=== PATIENT | male | born 1960 | race Caucasian/White ===

== ENCOUNTER 2021-07-16 15:57 | Emergency (ER) | payer SELFPAY ==
[~2021-07-16] VITALS: Ht 170.2 cm; Wt 79.5 kg
--- NOTE | 2021-07-16 15:58 | NUR ---
DEBRA DAVIS VIA GURNEY TO BED 03.
[2021-07-16 16:01] VITALS: BP 102/90
[2021-07-16] MEDS ORDERED: THIAMINE 200 MG/2 ML VIAL IV ONE (16:05)
[2021-07-16] MEDS ORDERED: NACL 0.9% 1,000 ML IV ONE (16:05)
[2021-07-16] MEDS ORDERED: FOLIC ACID 1 MG TAB PO ONE (16:05)
[2021-07-16 16:25] VITALS: BP 102/90
--- NOTE | 2021-07-16 16:45 | NUR ---
PT ELOPED , NO NURSING CARE RENDERED
--- NOTE | 2021-07-16 16:46 | NUR ---
Chart checked and completed. The patient's care was reviewed and supervised by Ashley Engle RN.
== END 2021-07-16 16:45 | disposition left against medical advice (07) ==
LOC: MED 15:57
DX: F10.129 Alcohol abuse with intoxication, unspecified (principal); I10 Essential (primary) hypertension
CPT/HCPCS: 99283

== ENCOUNTER 2021-07-16 17:57 | Emergency (ER) | payer SELFPAY ==
[~2021-07-16] VITALS: Ht 170.2 cm; Wt 76.0 kg
--- NOTE | 2021-07-16 17:57 | NUR ---
DEBRA DAVIS VIA GURNEY TO BED 05.
[2021-07-16] MEDS ORDERED: THIAMINE 200 MG/2 ML VIAL IV ONE (18:05)
[2021-07-16] MEDS ORDERED: FOLIC ACID 1 MG TAB PO ONE (18:05)
[2021-07-16] MEDS ORDERED: NACL 0.9% 1,000 ML IV ONE (18:05)
[2021-07-16] MEDS ORDERED: MAG SULF 2000 MG/WATER PREMIX 50 ML IV STA (18:16)
[2021-07-16 18:18] VITALS: BP 109/66
[2021-07-16] MEDS ORDERED: THIAMINE 200 MG/2 ML VIAL IM ONE (18:20)
[2021-07-16] MEDS ORDERED: FOLIC ACID 5 MG, MULTIVITAMIN-12 10 ML in NACL 0.9% 1,000 ML IV ONE (18:20)
--- NOTE | 2021-07-16 18:42 | NUR ---
PT IN BED WITH SIDE RAILS UP X2. PT ON MONITOR
[2021-07-16] MEDS ORDERED: THIAMINE 200 MG/2 ML VIAL ONE (19:29)
[2021-07-16] MEDS ORDERED: MAG SULF 2000 MG/WATER PREMIX 50 ML IV ONE (19:30)
--- NOTE | 2021-07-16 20:00 | NUR ---
patient sitting in bed. bed low and locked. all needs met
--- NOTE | 2021-07-17 01:03 | NUR ---
PATIENT EATING FOOD AT THIS TIME. BED LOW AND LOCKED. NATALIIA SIDE RAILS UP FOR SAFETY. ALL NEEDS MET AT THIS TIME.
--- NOTE | 2021-07-17 03:00 | NUR ---
PATIENT SLEEPING. BED LOW AND LOCKED. NATALIIA SIDE RAILS UP FOR SAFETY.
--- NOTE | 2021-07-17 04:00 | NUR ---
patient ambulated to the and back to bed
--- NOTE | 2021-07-17 05:01 | NUR ---
PATIENT RESTING IN BED. BED LOW AND LOCKED. NATALIIA SIDE RAILS UP FOR SAFETY.
[2021-07-17 05:20] VITALS: BP 118/72
--- NOTE | 2021-07-17 05:20 | NUR ---
Patient discharged with v/s stable. Written and verbal after care instructions given on alcohol intoxication and explained. Patient verbalized understanding. Ambulatory with steady gait. Advised to follow up with PMD.
--- NOTE | 2021-07-17 05:21 | NUR ---
Chart checked and completed.
== END 2021-07-17 05:20 | disposition home or self-care (01) ==
LOC: MED 17:57
DX: F10.129 Alcohol abuse with intoxication, unspecified (principal); I10 Essential (primary) hypertension
CPT/HCPCS: 96365; 96366; 96367; 96372; 99285; A9153; J3411; J3475; J3490; J7030